=== PATIENT | female | born 1990 | race Caucasian/White ===

== ENCOUNTER 2018-03-09 11:13 | Inpatient (IN) | payer OTHER ==
[2018-03-09] MEDS: LR 1,000 ML IV ×3 (13:39→23:13)
[2018-03-09 13:51] LABS: HEMATOCRIT 39.1 % (36.0-47.0); MEAN CORPUSCULAR HEMOGLOBIN 27.7 pg (27.0-33.0); MEAN CORPUSCULAR HGB CONC 33.2 g/dl (32.0-36.5); MEAN CORPUSCULAR VOLUME 83.4 fl (80.0-96.0); PLATELET COUNT, AUTOMATED 187 10^3/uL (150-450); RED BLOOD COUNT 4.69 10^6/uL (4.00-5.40); RED CELL DISTRIBUTION WIDTH 14.4 % (11.5-14.5); WHITE BLOOD COUNT 12.9 10^3/uL (4.0-10.0)
[2018-03-09] MEDS ORDERED: LR 1,000 ML IV (19:11)
[2018-03-09] MEDS: OXYTOCIN DRIP 30 UNITS in APPROPRIATE DILUENT 1 EA IV (19:30)
[2018-03-09] MEDS: NALBUPHINE HCL 10 MG/ML AMP (J2300) IV (23:14)
[2018-03-09] MEDS: NALBUPHINE HCL 10 MG/ML AMP (J2300) IM (23:14)
[2018-03-09] MEDS: PROMETHAZINE INJ 25 MG/ML VIAL (J2550) IV (23:14)
[2018-03-10] MEDS ORDERED: FENTANYL 2MCG/ML ROPIVACAINE 0.2% IN 0.9% NACL 200ML IVBAG As Ordered (00:57)
[2018-03-10] MEDS ORDERED: EPIDURAL/PCA KEYS XX (01:30)
[2018-03-10] MEDS ORDERED: NALOXONE INJ 0.4 MG/1 ML VIAL (J2310) IV (01:30)
[2018-03-10] MEDS ORDERED: FENTANYL/ROPIVACAINE/NACL BAG 200 ML EPIDURAL (01:30)
[2018-03-10] MEDS ORDERED: REFRIGERATOR IV KEYS XX (01:30)
[2018-03-10] MEDS ORDERED: diphenhydrAMINE INJ 50MG/ML VIAL (J1200) IV (01:30)
[2018-03-10] MEDS ORDERED: ONDANSETRON 4MG/2ML VIAL (J2405) IV (01:30)
[2018-03-10] MEDS ORDERED: EPIDURAL COMMENT XX (01:30)
[2018-03-10] MEDS ORDERED: LACTATED RINGER'S 1000 ML IV (01:30)
[2018-03-10] MEDS: LR 1,000 ML IV ×3 (03:10→19:59)
[2018-03-10] MEDS: ePHEDrine SULFATE 25 MG/5 ML(5MG/ML) SYRINGE IV ×3 (03:41→04:24)
[2018-03-10] MEDS: ACETAMINOPHEN TAB 650MG DOSE (2X325MG) PO (13:59)
[2018-03-10 15:48] LABS: CORD GAS ABE V -4.9; CORD GAS HCO3 V 21.2 MEQ/L; CORD GAS O2 SAT V 54.5 %; CORD GAS PCO2 V 42.8 mmHg; CORD GAS PH V 7.312 UNITS; CORD GAS PO2 V 23.9 mmHg; CORD GAS SBC V 19.3 MEQ/L; CORD GAS TCO2 V 22.5 MEQ/L
[2018-03-10 15:50] LABS: CORD GAS ABE A -4.7; CORD GAS HCO3 A 23.7 MEQ/L; CORD GAS O2 SAT A 15.3 %; CORD GAS PCO2 A 56.8 mmHg; CORD GAS PH A 7.239 UNITS; CORD GAS PO2 A 11.7 mmHg; CORD GAS SBC A 18.5 MEQ/L; CORD GAS TCO2 A 25.5 MEQ/L
[2018-03-10] MEDS: OXYTOCIN DRIP 30 UNITS in APPROPRIATE DILUENT 1 EA IV ×3 (15:54→22:30)
[2018-03-10] MEDS ORDERED: MEASLES,MUMPS,RUBELLA VACCINE INJ (MMR-II) (90707) SC (16:00)
[2018-03-10] MEDS ORDERED: METOCLOPRAMIDE INJ 10MG/2ML VIAL (J2765) IV (16:00)
[2018-03-10] MEDS ORDERED: RHOGAM 300 MCG (1500 IU) INJ (J2790) IM (16:00)
[2018-03-10] MEDS ORDERED: MORPHINE 4 MG/ML 1ML VIAL/SYRINGE (J2270) As Ordered (17:58)
[2018-03-10] MEDS ORDERED: OXYTOCIN 30 UNITS IN 0.9% NaCl 500ML IV BAG (J2590) As Ordered (17:58)
[2018-03-10] MEDS ORDERED: miSOPROStol 200 MCG TAB (S0191) As Ordered (17:59)
[2018-03-10] MEDS: MORPHINE 4 MG/ML 1ML VIAL/SYRINGE (J2270) IV (18:15)
[2018-03-10] MEDS: miSOPROStol 200 MCG TAB (S0191) PR (18:15)
[2018-03-10] MEDS ORDERED: OXYTOCIN INJ 10 UNITS/ML VIAL (J2590) IV (18:15)
[2018-03-10] MEDS ORDERED: ceFAZolin 2 GM/D5W 50 ML IV BAG (J0690 PER 500MG) As Ordered (18:27)
[2018-03-10] MEDS ORDERED: fentaNYL 100 MCG/2 ML INJECTION (J3010) As Ordered (18:43)
[2018-03-10] MEDS ORDERED: MIDAZOLAM INJ 2 MG/2 ML VIAL (J2250) As Ordered (18:43)
[2018-03-10] MEDS ORDERED: LIDOCAINE 2% INJ 100 MG/5 ML SDV (FOR ANES.) As Ordered ×2 (18:43→18:46)
[2018-03-10] MEDS ORDERED: SUCCINYLCHOLINE 100 MG/5 ML SYRINGE (J0330) As Ordered (18:43)
[2018-03-10] MEDS ORDERED: ROCURONIUM BROMIDE 50 MG/5 ML VIAL As Ordered ×2 (18:43→18:46)
[2018-03-10] MEDS ORDERED: PROPOFOL 200 MG/20 ML VIAL As Ordered (18:43)
[2018-03-10] MEDS ORDERED: ETOMIDATE INJ 20MG/10ML VIAL As Ordered ×2 (18:44→18:46)
[2018-03-10] MEDS: METHYLERGONOVINE MALEATE 0.2 MG/ML VIAL (J2210) IM (18:50)
[2018-03-10] MEDS ORDERED: OXYTOCIN INJ 10 UNITS/ML VIAL (J2590) As Ordered ×3 (18:53→19:24)
[2018-03-10] MEDS ORDERED: ONDANSETRON 4MG/2ML VIAL (J2405) As Ordered (19:03)
[2018-03-10] MEDS ORDERED: dexameTHASONE 4 MG/ML 1ML VIAL (J1100) As Ordered ×2 (19:03)
[2018-03-10] MEDS ORDERED: CARBOPROST TROMETHAMINE 250 MCG/ML AMP As Ordered (19:20)
[2018-03-10 19:49] LABS: INR 1.07; PROTHROMBIN TIME 14.1 SECONDS (12.4-14.5)
[2018-03-10 19:50] LABS: PARTIAL THROMBOPLASTIN TIME 29.4 SECONDS (26.8-37.9)
[2018-03-10] MEDS ORDERED: fentaNYL 100 MCG/2 ML INJECTION (J3010) IV (20:00)
[2018-03-10] MEDS: ONDANSETRON 4MG/2ML VIAL (J2405) IV (21:16)
[2018-03-10] MEDS: AMPICILLIN SOD/SULBACTAM SOD 3 GM in D5W MINI-BAG PLUS 100 ML IV (21:35)
[2018-03-10] MEDS: METHYLERGONOVINE MALEATE 0.2 MG TAB PO (21:35)
[2018-03-10] MEDS: PERCOCET 5MG/325MG TAB PO (21:52)
[2018-03-10] MEDS: IBUPROFEN 800 MG TAB PO (21:53)
[2018-03-10 23:28] LABS: HEMATOCRIT 23.1 % (36.0-47.0); MEAN CORPUSCULAR HEMOGLOBIN 29.7 pg (27.0-33.0); MEAN CORPUSCULAR HGB CONC 34.6 g/dl (32.0-36.5); MEAN CORPUSCULAR VOLUME 85.9 fl (80.0-96.0); PLATELET COUNT, AUTOMATED 130 10^3/uL (150-450); RED BLOOD COUNT 2.69 10^6/uL (4.00-5.40); WHITE BLOOD COUNT 24.4 10^3/uL (4.0-10.0)
[2018-03-11] MEDS: METHYLERGONOVINE MALEATE 0.2 MG TAB PO ×3 (03:34→15:33)
[2018-03-11] MEDS: AMPICILLIN SOD/SULBACTAM SOD 3 GM in D5W MINI-BAG PLUS 100 ML IV ×3 (03:34→15:34)
[2018-03-11] MEDS: PERCOCET 5MG/325MG TAB PO ×2 (03:35→18:13)
[2018-03-11] MEDS: LR 1,000 ML IV (03:59)
[2018-03-11 07:05] LABS: BASO % 0.1 % (0.0-1.0); HEMATOCRIT 19.4 % (36.0-47.0); IMMATURE GRANULOCYTE % 0.5 % (0-3.0); LYMPH # 1.6 10^3/uL (1.5-6.5); LYMPH % 7.8 % (24.0-44.0); MEAN CORPUSCULAR HEMOGLOBIN 28.9 pg (27.0-33.0); MEAN CORPUSCULAR HGB CONC 34.5 g/dl (32.0-36.5); MEAN CORPUSCULAR VOLUME 83.6 fl (80.0-96.0); MONO % 10.3 % (0.0-5.0); NEUTROPHILS # 16.9 10^3/uL (1.8-7.7); NEUTROPHILS % 81.3 % (36.0-66.0); PLATELET COUNT, AUTOMATED 116 10^3/uL (150-450); RED BLOOD COUNT 2.32 10^6/uL (4.00-5.40); RED CELL DISTRIBUTION WIDTH 14.1 % (11.5-14.5); WHITE BLOOD COUNT 20.8 10^3/uL (4.0-10.0)
[2018-03-11 07:32] LABS: HEMOGLOBIN 6.7 g/dl (12.0-15.5); MONO # 2.1 10^3/uL (0.0-0.8); POSITIVE DIFF POS FLAG
[2018-03-11] MEDS: NS 1,000 ML IV (07:59)
[2018-03-11] MEDS: PRENATAL VITAMINS CHEWABLE TABLET PO (08:26)
[2018-03-11] MEDS: DOCUSATE SODIUM 100 MG CAP PO ×3 (08:27→21:00)
[2018-03-11] MEDS: IBUPROFEN 800 MG TAB PO (08:28)
[2018-03-11] MEDS: diphenhydrAMINE 25 MG CAP PO (09:15)
[2018-03-11] MEDS: ACETAMINOPHEN TAB 650MG DOSE (2X325MG) PO (09:15)
[2018-03-11 10:06] LABS: IMMEDIATE SPIN CROSSMATCH 1 4
[2018-03-11 20:29] LABS: HEMATOCRIT 24.9 % (36.0-47.0); HEMOGLOBIN 8.6 g/dl (12.0-15.5); MEAN CORPUSCULAR HGB CONC 34.5 g/dl (32.0-36.5); MEAN CORPUSCULAR VOLUME 83.8 fl (80.0-96.0); PLATELET COUNT, AUTOMATED 111 10^3/uL (150-450); RED BLOOD COUNT 2.97 10^6/uL (4.00-5.40); RED CELL DISTRIBUTION WIDTH 14.4 % (11.5-14.5); WHITE BLOOD COUNT 19.9 10^3/uL (4.0-10.0)
[2018-03-12] MEDS: DIBUCAINE 1% OINTMENT 30GM TOP ×2 (03:11→12:40)
[2018-03-12] MEDS: IBUPROFEN 800 MG TAB PO ×2 (03:11→17:38)
[2018-03-12] MEDS: PERCOCET 5MG/325MG TAB PO (05:49)
[2018-03-12] MEDS: PRENATAL VITAMINS CHEWABLE TABLET PO (08:15)
[2018-03-12] MEDS: DOCUSATE SODIUM 100 MG CAP PO (08:15)
[2018-03-12] MEDS: ACETAMINOPHEN TAB 650MG DOSE (2X325MG) PO (13:17)
== END 2018-03-12 21:04 | disposition home or self-care (01) | DRG 769 ==
LOC: M LDO 11:13 → M OBS 03-11 08:49 → M LDI 12:45
PROVIDERS: Obstetrics & Gynecology
PROC: 0KQM0ZZ Repair Perineum Muscle, Open Approach (ICD-10-PCS; principal; 2018-03-10 18:38)
PROC: 0KQM0ZZ Repair Perineum Muscle, Open Approach (ICD-10-PCS; 2018-03-10 18:38)
PROC: 10D07Z6 Extraction of Products of Conception, Vacuum, Via Natural or Artificial Opening (ICD-10-PCS; 2018-03-10 18:38)
PROC: 30233N1 Transfusion of Nonautologous Red Blood Cells into Peripheral Vein, Percutaneous Approach (ICD-10-PCS; 2018-03-10 18:38)
PROC: 0UC97ZZ Extirpation of Matter from Uterus, Via Natural or Artificial Opening (ICD-10-PCS; 2018-03-10 18:38)
DX: O70.1 Second degree perineal laceration during delivery (principal); O72.1 Other immediate postpartum hemorrhage; O76 Abnormality in fetal heart rate and rhythm complicating labor and delivery; O48.0 Post-term pregnancy; Z3A.40 40 weeks gestation of pregnancy